=== PATIENT | female | born 1965 | race Caucasian/White ===

== ENCOUNTER 2017-08-27 15:44 | Emergency (ER) | payer BC ==
[2017-08-27 16:06] VITALS: BP 155/104
--- NOTE | 2017-08-27 16:07 | UC ---
Laceration HPI - HPI Summary HPI Summary: 52 yo female presents with scalp laceration sustained about 30 min [employer]. She tells me that she was removing an old garage door with a friend and her side of the door collapsed and hit her on top of the head. No LOC. She sustained a scalp laceration. She applied pressure to the area and went over to a nearby friend's house who is a doctor and they recommended pt be seen for skin brooke. Pt says her last tetanus was within the last 10 years, but not within the last 5 years. Currently has a mild headache, but no dizziness, vision changes, n/v. - History Of Current Complaint Chief Complaint: UCLaceration Stated Complaint: HEAD LAC Hx Obtained From: Patient Laceration Location: Head Mechanism Of Injury: Blunt Trauma Onset/Duration: Sudden Onset Severity: Mild Pain Intensity: 4 Pain Scale Used: 0-10 Numeric - Allergies/Home Medications Allergies/Adverse Reactions: Allergies Allergy/AdvReac Type Severity Reaction Status Date / Time No Known Allergies Allergy Verified 08/27/17 16:07 PMH/Surg Hx/FS Hx/Imm Hx Endocrine History: Hypothyroidism Other History Of: Negative For: Anticoagulant Therapy - Surgical History Surgical History: Yes Surgery Procedure, Year, and Place: [facility] - Family History Known Family History: Positive: None - Social History Occupation: Employed Full-time Lives: With Family Alcohol Use: Occasionally Substance Use Type: None Smoking Status (MU): Never Smoked Tobacco Review of Systems Constitutional: Negative Skin: Other - Scalp laceration Eyes: Negative Respiratory: Negative Cardiovascular: Negative Gastrointestinal: Negative Neurovascular: Negative Musculoskeletal: Negative Neurological: Negative Psychological: Negative All Other Systems Reviewed And Are Negative: Yes Physical Exam - Summary Physical Exam Summary: GENERAL: NAD. WDWN. No pain distress. SKIN: 3.0cm linear laceration to parietal scalp. 2mm in width. 1-2mm in depth. HEENT: Head: No sanchez's sign or raccoon eyes. Eyes: PERRLA. EOM intact. NECK: Supple. FROM. NTTP CHEST: No accessory muscle use. Breathing comfortably and in no distress. CV: Pulses intact. Brisk cap refill. MSK: FROM in B/L UEs and LEs with symmetric strength. NEURO: A&Ox3. 3 word recall, remote, recent memory, ability to follow 2-step directions, and attention intact. CN II XII grossly intact. [id number] are intact. Gait with normal base. Romberg: maintains balance, no pronator drift. Normal speech. No facial drooping. PSYCH: Age appropriate behavior. Triage Information Reviewed: Yes Vital Signs: Initial Vital Signs Temp 99.5 F 08/27/17 16:03 Pulse 78 08/27/17 16:03 Resp 16 08/27/17 16:03 BP 155/104 08/27/17 16:03 Pulse Ox 99 08/27/17 16:03 Laceration Repair - Laceration Repair 1 Description: Linear Laceration Size After Repair: Length (cm) - 3.0, Width (mm) - 2, Depth (mm) - 2 Modified For Repair: No Irrigation With Pressure Irrigation Device: Yes Closure Material: Brooke - FOUR Laceration Course/Dx - Course/Dx Course Of Treatment: A time out was performed, witnessed, and signed. The area was irrigated with 250mL sterile saline. FOUR brooke were applied to the laceration with good approximation. Pt tolerated procedure well. Her BP is elevated today - pt says that this is usual for her and her PCP is aware. They are in the process of starting her with BP medications. - Differential Dx - Laceration/Wound Provider Diagnoses: Scalp laceration Discharge - Sign-Out/Discharge Documenting (check all that apply): Discharge/Admit/Transfer - Discharge Plan Condition: Stable Disposition: HOME Patient Education Materials: [facility] (ED) Referrals: Keily Burciaga MD [Primary Care Provider] - Additional Instructions: If you develop a fever, shortness of breath, chest pain, new or worsening symptoms - please call your PCP or go to the ED. Your blood pressure was high at todays visit. Please see your primary provider within 4 weeks for recheck and re-evaluation. 1) Please return to have your FOUR brooke removed in 8-10days - Billing Disposition and Condition Condition: STABLE Disposition: Home
[2017-08-27] MEDS ORDERED: Tetan/Diph/Pertus SYR(Tdap)* 0.5 ML SYR(BOOSTRIX) use SYR IM ONE (16:09)
== END 2017-08-27 16:45 | disposition home or self-care (01) ==
LOC: UCEAST 15:44
DX: S01.01XA Laceration without foreign body of scalp, initial encounter (principal); W20.8XXA Other cause of strike by thrown, projected or falling object, initial encounter; Y93.89 Activity, other specified; Y92.9 Unspecified place or not applicable
CPT/HCPCS: 12002; 90471; 90715; 99211; G0463

== ENCOUNTER 2017-09-02 14:42 | Emergency (ER) | payer BC ==
[2017-09-02 14:54] VITALS: BP 153/103
--- NOTE | 2017-09-02 15:13 | UC ---
Minor Trauma HPI - HPI Summary HPI Summary: This pt is a 52 y/o female presenting to [facility] c/o right sided rib pain s/p fall today. Pt reports she lost balance and fell off a scaffolding at approximately 13:00 today, about 6 feet down. Denies head strike or LOC. Pt notes she hit her back and the right side of her rib cage area. She states her pain is 5 out of 10 in severity. Additionally she notes her right sided rib pain is aggravated with deep breaths. - History of Current Complaint Chief Complaint: UCTrauma Stated Complaint: FELL RIB INJURY Time Seen by Provider: 09/02/17 14:57 Hx Obtained From: Patient Onset/Duration: Lasting Hours, Still Present Onset Of Pain: Immediate Severity Currently: Moderate Pain Intensity: 5 Pain Scale Used: 0-10 Numeric Mechanism Of Injury: Fall From Height Of: - approx 6 feet Aggravating Factor(s): Deep Breaths Alleviating Factor(s): Nothing Associated Signs And Symptoms: Negative: Loss Of Consciousness, Ecchymosis, Swelling - Allergies/Home Medications Allergies/Adverse Reactions: Allergies Allergy/AdvReac Type Severity Reaction Status Date / Time No Known Allergies Allergy Verified 09/02/17 14:54 PMH/Surg Hx/FS Hx/Imm Hx Endocrine History: Thyroid Disease Other Cardiovascular History: DENIES: HTN Other History Of: Negative For: Anticoagulant Therapy - Surgical History Surgical History: Yes Surgery Procedure, Year, and Place: [facility] - Family History Known Family History: Negative: Cardiac Disease, Hypertension, Diabetes - Social History Alcohol Use: Occasionally Substance Use Type: None Smoking Status (MU): Never Smoked Tobacco Review of Systems Constitutional: Negative Skin: Negative Eyes: Negative ENT: Negative Respiratory: Negative Cardiovascular: Negative Gastrointestinal: Negative Genitourinary: Negative Motor: Negative Neurovascular: Negative Musculoskeletal: Other: - right sided rib pain Neurological: Negative Psychological: Negative All Other Systems Reviewed And Are Negative: Yes Physical Exam - Summary Physical Exam Summary: VITAL SIGNS: Reviewed. GENERAL: Patient is a well-developed and nourished female. Patient is not in any acute respiratory distress. HEAD AND FACE: Normocephalic EYES: PERRLA, EOMI x 2. EARS: Hearing grossly intact. MOUTH: Oropharynx within normal limits. NECK: Supple, trachea is midline, no adenopathy, no JVD, no carotid bruit. CHEST: Symmetric, no tenderness at palpation LUNGS: Clear to auscultation bilaterally. No wheezing or crackles. CVS: Regular rate and rhythm, S1 and S2 present, no murmurs or gallops appreciated. ABDOMEN: Soft, non-tender. Bowel sounds are normal. No abdominal abnormal pulsations. EXTREMITIES: Full ROM in all major joints, no edema, no cyanosis or clubbing. NEURO: Alert and oriented x 3. No acute neurological deficits. Speech is normal and follows commands. Pt has a normal gait. SKIN: Dry and warm. Small abrasion on right side of the lower back. Triage Information Reviewed: Yes Vital Signs: Initial Vital Signs Temp 100.2 F 09/02/17 14:47 Pulse 71 09/02/17 14:47 Resp 16 09/02/17 14:47 BP 153/103 09/02/17 14:47 Pulse Ox 98 09/02/17 14:47 Vital Signs Reviewed: Yes Diagnostics - Radiology Right ribs with chest XR Xray Interpretation: Positive (See Comments) - IMPRESSION: Minimally displaced fracture of the right 11th rib with a small right apical pneumothorax. Dr. Mcarthur has reviewed this radiology report. Radiology Interpretation Completed By: Radiologist Lumbar spine XR Xray Interpretation: No Acute Changes - IMPRESSION: No fracture of the lumbar spine is noted. Dr. Mcarthur has reviewed this radiology report. Radiology Interpretation Completed By: Radiologist Re-Evaluation - Re-Evaluation First Eval Re-Evaluation Time: 15:50 Comment: I reviewed the XR results with the pt. Minor Trauma Course/Dx - Course Course Of Treatment: Pt is a 52 y/o female presenting to [facility] c/o right sided rib pain s/p fall today. Pt reports she lost balance and fell off a scaffolding at approximately 13:00 today, about 6 feet down. Denies head strike or LOC. Pt notes she hit her back and the right side of her rib cage area. She states her pain is 5 out of 10 in severity. Additionally she notes her right sided rib pain is aggravated with deep breaths. Lumbar spine XR is negative for fractures. Right ribs with chest XR shows minimally displaced fracture of the right 11th rib with a small right apical pneumothorax. I recommended the pt to go to the ED, but she declines. I recommended her to go tomorrow to the ED for a repeat chest XR to make sure pneumothorax has not increased in size. Pt was instructed to go immediately to the ED for any increase in SOB, weakness, or any other worsening or new symptoms. She will be discharged home with a prescription for [place]. Plan of care was discussed with the patient and pt understands and agrees. All questions were answered to patient satisfaction. There were no further complaints or concerns. Pt will be discharged to home with follow up from PCP. Pt is hemodynamically stable, alert and oriented x3. The patient was found to have increased blood pressure in UC. The patient will follow up with PCP for better control of BP. - Differential Dx/Diagnosis Provider Diagnoses: 1. Right eleventh rib fracture. 2. Small right apical pneumothorax - Physician Notifications Discussed Patient Care With: Russell Owen Time Discussed With Above Provider: 15:41 Instructed by Provider To: Other - Dr. Owen, radiologist, reports pt has a tiny apical pneumothorax. Discharge - Sign-Out/Discharge Documenting (check all that apply): Patient Departure - Discharge - Discharge Plan Condition: Stable Disposition: HOME Prescriptions: HYDROcodone/ACETAMIN 5-325 MG* [[place] 5-325 TAB*] 1 tab PO Q6H PRN #10 tab MDD 4 PRN Reason: Pain Patient Education Materials: Traumatic Pneumothorax (ED), Rib Fracture (ED) Referrals: Keily Burciaga MD [Primary Care Provider] - Additional Instructions: FOLLOW UP WITH YOUR PRIMARY CARE PROVIDER WITHIN ONE WEEK FOR HIGH BLOOD PRESSURE NOTED TODAY. RETURN TO URGENT CARE OR THE ED FOR ANY WORSENING OR NEW SYMPTOMS.
--- NOTE | 2017-09-02 15:44 | RAD ---
HISTORY: rib pain COMPARISONS: Chest x-ray dated December 19, 2009 VIEWS: 7, Frontal view of the chest with frontal and oblique views of the right hemithorax. FINDINGS: There is a minimally displaced fracture of the posterior aspect of the right 11th rib. There is a small right apical pneumothorax. IMPRESSION: MINIMALLY DISPLACED FRACTURE OF THE RIGHT 11TH RIB WITH A SMALL RIGHT APICAL PNEUMOTHORAX. PRELIMINARY FINDINGS WERE DISCUSSED WITH DR. EDWARD IN THE URGENT CARE AT APPROXIMATELY 3:40 PM ON SEPTEMBER 02, 2017.
--- NOTE | 2017-09-02 15:44 | RAD ---
Indication: Rib pain, back pain. 2 views of lumbar spine demonstrate vertebral bodies to be normal in height. Disc spaces are well-preserved. Pedicles appear intact. IMPRESSION: No fracture of the lumbar spine is noted.
== END 2017-09-02 16:10 | disposition home or self-care (01) ==
LOC: UCEAST 14:42
DX: S22.31XA Fracture of one rib, right side, initial encounter for closed fracture (principal); S27.0XXA Traumatic pneumothorax, initial encounter; W12.XXXA Fall on and from scaffolding, initial encounter; Y93.9 Activity, unspecified; Y92.9 Unspecified place or not applicable; E07.9 Disorder of thyroid, unspecified
CPT/HCPCS: 72100; 99212; G0463